=== PATIENT | female | born 1980 | race African-American/Black ===

== ENCOUNTER → 2018-04-27 | Outpatient (CLI) | payer BC ==
[2018-04-27 17:14] LABS: BASO % 0.3 % (0.0-1.0); HEMATOCRIT 34.7 % (36.0-47.0); HEMOGLOBIN 11.3 g/dl (12.0-15.5); LYMPH # 1.5 10^3/uL (1.5-4.5); LYMPH % 45.4 % (24.0-44.0); MEAN CORPUSCULAR HEMOGLOBIN 28.4 pg (27.0-33.0); MEAN CORPUSCULAR HGB CONC 32.6 g/dl (32.0-36.5); MEAN CORPUSCULAR VOLUME 87.2 fl (80.0-96.0); MONO # 0.4 10^3/uL (0.0-0.8); MONO % 13.5 % (0.0-5.0); NEUTROPHILS # 1.3 10^3/uL (1.8-7.7); NEUTROPHILS % 40.5 % (36.0-66.0); PLATELET COUNT, AUTOMATED 291 10^3/uL (150-450); RED BLOOD COUNT 3.98 10^6/uL (4.00-5.40); WHITE BLOOD COUNT 3.3 10^3/uL (4.0-10.0)
[2018-04-27 17:24] LABS: BLOOD UREA NITROGEN 13 MG/DL (7-18); CALCIUM LEVEL 8.1 MG/DL (8.5-10.1); CARBON DIOXIDE LEVEL 27 MEQ/L (21-32); CHLORIDE LEVEL 109 MEQ/L (98-107); CREATININE FOR GFR 0.87 MG/DL (0.55-1.30); GLOMERULAR FILTRATION RATE > 60.0 (>60); GLUCOSE, FASTING 114 MG/DL (70-100); POTASSIUM SERUM 4.2 MEQ/L (3.5-5.1); SODIUM LEVEL 141 MEQ/L (136-145)
== END ==
LOC: M LAB 15:42
PROVIDERS: ATTEND Physician Assistant
DX: R21 Rash and other nonspecific skin eruption (principal)

== ENCOUNTER → 2023-10-19 | Outpatient (CLI) | payer BC ==
[2023-10-19 14:25] LABS: BASO % 0.2 % (0.0-1.0); EOS % 0.6 % (0.0-3.0); HEMATOCRIT 40.2 % (36.0-47.0); HEMOGLOBIN 13.4 g/dl (12.0-15.5); LYMPH % 30.1 % (24.0-44.0); MEAN CORPUSCULAR HEMOGLOBIN 30.5 pg (27.0-33.0); MEAN CORPUSCULAR HGB CONC 33.3 g/dl (32.0-36.5); MEAN CORPUSCULAR VOLUME 91.4 fl (80.0-96.0); MONO # 0.7 10^3/uL (0.0-0.8); MONO % 10.5 % (2.0-8.0); NEUTROPHILS # 3.8 10^3/uL (1.5-8.5); NEUTROPHILS % 58.3 % (36.0-66.0); PLATELET COUNT, AUTOMATED 269 10^3/uL (150-450); WHITE BLOOD COUNT 6.5 10^3/uL (4.0-10.0)
[2023-10-19 15:00] LABS: C REACTIVE PROTEIN QUANTITATIV < 0.40 MG/DL (<1.0)
[2023-10-19 15:02] LABS: ALKALINE PHOSPHATASE 62 U/L (46-116); ALT/SGPT 23 U/L (7.0-40); AST/SGOT 13 U/L (<34); BILIRUBIN,TOTAL 0.6 MG/DL (0.3-1.2); BLOOD UREA NITROGEN 16 MG/DL (9-23); CALCIUM LEVEL 9.8 MG/DL (8.5-10.1); CARBON DIOXIDE LEVEL 24 MMOL/L (20-31); CHLORIDE LEVEL 108 MMOL/L (98-107); GLOMERULAR FILTRATION RATE > 60.0 (>58); GLUCOSE, FASTING 79 MG/DL (60-100); SODIUM LEVEL 137 MMOL/L (136-145); TOTAL PROTEIN 7.4 G/DL (5.7-8.2)
[2023-10-19 15:07] LABS: FREE T4 1.26 NG/DL (0.89-1.76)
== END ==
LOC: M WUC 10:45
PROVIDERS: ATTEND Physician Assistant
DX: L04.0 Acute lymphadenitis of face, head and neck (principal)

== ENCOUNTER → 2024-03-15 | Outpatient (CLI) | payer BC | LOC: M WHC 07:03 | PROVIDERS: ATTEND Nurse Practitioner Family | DX: Z12.31 Encounter for screening mammogram for malignant neoplasm of breast (principal) ==

== ENCOUNTER → 2024-03-15 | Outpatient (CLI) | payer BC ==
[2024-03-15 11:38] LABS: BASO % 0.2 % (0.0-1.0); EOS % 0.7 % (0.0-3.0); HEMATOCRIT 42.2 % (36.0-47.0); HEMOGLOBIN 13.7 g/dl (12.0-15.5); LYMPH # 1.8 10^3/uL (1.5-5.0); LYMPH % 31.3 % (24.0-44.0); MEAN CORPUSCULAR HGB CONC 32.5 g/dl (32.0-36.5); MEAN CORPUSCULAR VOLUME 92.3 fl (80.0-96.0); MONO # 0.6 10^3/uL (0.0-0.8); MONO % 10.1 % (2.0-8.0); NEUTROPHILS # 3.3 10^3/uL (1.5-8.5); NEUTROPHILS % 57.5 % (36.0-66.0); PLATELET COUNT, AUTOMATED 289 10^3/uL (150-450); RED BLOOD COUNT 4.57 10^6/uL (4.00-5.40); WHITE BLOOD COUNT 5.7 10^3/uL (4.0-10.0)
[2024-03-15 12:07] LABS: ALKALINE PHOSPHATASE 52 U/L (35-104); ALT/SGPT 19 U/L (7.0-40); AST/SGOT 14 U/L (<34); BILIRUBIN,TOTAL 1.1 MG/DL (0.3-1.2); BLOOD UREA NITROGEN 11 MG/DL (9-23); CALCIUM LEVEL 8.8 MG/DL (8.5-10.1); CARBON DIOXIDE LEVEL 24 MMOL/L (20-31); CHLORIDE LEVEL 107 MMOL/L (98-107); CHOLESTEROL LEVEL 200 MG/DL (<200); CREATININE FOR GFR 0.78 MG/DL (0.55-1.30); GLOMERULAR FILTRATION RATE > 60.0 (>58); GLUCOSE, FASTING 92 MG/DL (60-100); HDL CHOLESTEROL 71.3 MG/DL (>40); LDL CHOLESTEROL 115.9 MG/DL (<100); NON-HDL-C 128.7 MG/DL; SODIUM LEVEL 139 MMOL/L (136-145); TOTAL PROTEIN 7.3 G/DL (5.7-8.2); TRIGLYCERIDES LEVEL 64 MG/DL (<150)
[2024-03-15 12:08] LABS: THYROID STIMULATING HORMONE 0.614 uIU/ML (0.55-4.78)
[2024-03-15 12:09] LABS: FREE T4 1.26 NG/DL (0.89-1.76)
== END ==
LOC: M PLALAB 07:31
PROVIDERS: ATTEND Nurse Practitioner Family
DX: E55.9 Vitamin D deficiency, unspecified (principal); R53.83 Other fatigue; Z13.220 Encounter for screening for lipoid disorders

== ENCOUNTER → 2024-04-08 | Outpatient (CLI) | payer BC | LOC: M WHC 11:24 | PROVIDERS: ATTEND Nurse Practitioner Family | DX: Z12.31 Encounter for screening mammogram for malignant neoplasm of breast (principal); D17.39 Benign lipomatous neoplasm of skin and subcutaneous tissue of other sites | CPT/HCPCS: 76642; 77066; G0279 ==

== ENCOUNTER → 2024-06-14 | Outpatient (REF) | payer BC ==
[2024-06-18 14:32] LABS: HPV APTIMA Not Detected (Not Detected)
== END ==
LOC: M SFHCPLAZ 17:47
PROVIDERS: ATTEND Nurse Practitioner Family
DX: Z12.4 Encounter for screening for malignant neoplasm of cervix (principal); B37.31 Acute candidiasis of vulva and vagina
CPT/HCPCS: 87624; G0123

== ENCOUNTER 2024-06-21 06:41 | Emergency (ER) | payer BC ==
[~2024-06-21] VITALS: Ht 162.6 cm; Wt 63.6 kg
[2024-06-21 08:50] LABS: BASO % 0.2 % (0.0-1.0); EOS % 0.4 % (0.0-3.0); HEMATOCRIT 39.1 % (36.0-47.0); HEMOGLOBIN 13.4 g/dl (12.0-15.5); LYMPH # 1.6 10^3/uL (1.5-5.0); LYMPH % 30.9 % (24.0-44.0); MEAN CORPUSCULAR HEMOGLOBIN 30.7 pg (27.0-33.0); MEAN CORPUSCULAR HGB CONC 34.3 g/dl (32.0-36.5); MEAN CORPUSCULAR VOLUME 89.7 fl (80.0-96.0); MONO # 0.5 10^3/uL (0.0-0.8); MONO % 10.4 % (2.0-8.0); NEUTROPHILS % 57.9 % (36.0-66.0); PLATELET COUNT, AUTOMATED 274 10^3/uL (150-450); RED BLOOD COUNT 4.36 10^6/uL (4.00-5.40); WHITE BLOOD COUNT 5.1 10^3/uL (4.0-10.0)
[2024-06-21] MEDS ORDERED: ISOVUE-370 76% 100ML VIAL As Ordered ONE (08:50)
[2024-06-21] MEDS ORDERED: CLIN150C17 PO (09:49)
[2024-06-21 10:09] VITALS: BP 118/81; TEMP 98; O2SAT 100
== END 2024-06-21 10:10 | disposition home or self-care (01) ==
LOC: M ED 06:41
DX: K11.5 Sialolithiasis (principal); F17.200 Nicotine dependence, unspecified, uncomplicated; Z88.1 Allergy status to other antibiotic agents; Z88.2 Allergy status to sulfonamides; Z79.2 Long term (current) use of antibiotics
CPT/HCPCS: 36415; 70491; 80047; 85025; 99284; Q9967

== ENCOUNTER 2024-09-19 09:14 | Day surgery (SDC) | payer BC ==
[~2024-09-19] VITALS: Ht 162.6 cm; Wt 63.8 kg
[~2024-09-19 09:14] MED LIST: ACET32TAB PO; CLIN150C17 PO; IBUP200C25 PO
[2024-09-19] MEDS: TRIAMCINOLONE ACETONIDE SUSP 40MG/ML 1ML VIAL As Ordered ONE (09:46)
[2024-09-19] MEDS ORDERED: SUGAMMADEX SODIUM 500 MG/5 ML VIAL As Ordered ONE (10:46)
[2024-09-19] MEDS ORDERED: ONDANSETRON 4MG 2ML VIAL As Ordered ONE (10:46)
[2024-09-19] MEDS ORDERED: ROCURONIUM BROMIDE 50MG/5ML VIAL As Ordered ONE (10:46)
[2024-09-19] MEDS ORDERED: dexAMETHasone 4 MG/ML 1 ML VIAL As Ordered ONE (10:46)
[2024-09-19] MEDS ORDERED: LIDOCAINE 2% 100 MG/5 ML SDV (FOR ANES.) As Ordered ONE (10:46)
[2024-09-19] MEDS ORDERED: MIDAZOLAM INJ 2 MG/2 ML VIAL As Ordered ONE (11:07)
[2024-09-19] MEDS: OXYMETAZOLINE 0.05% NASAL SPRAY As Ordered ONE (11:52)
[2024-09-19] MEDS ORDERED: ACETAMINOPHEN 1000MG/100ML IV BAG As Ordered ONE (12:03)
[2024-09-19] MEDS: LIDOCAINE W/EPINEPHrine 1% 20 ML VIAL As Ordered ONE (12:31)
[2024-09-19] MEDS ORDERED: HYDROMORPHONE HCL 0.5 MG/0.5 ML SYRINGE IV PRN (12:55)
[2024-09-19] MEDS ORDERED: LR 1,000 ML IV SCH ×2 (12:55→14:50)
[2024-09-19] MEDS: ONDANSETRON 4MG 2ML VIAL IV PRN (13:15)
[2024-09-19 14:37] VITALS: BP 109/71; TEMP 97.2; O2SAT 100
== END 2024-09-19 14:48 | disposition home or self-care (01) ==
LOC: M SDC 09:14
PROVIDERS: ATTEND Otolaryngology
DX: K11.5 Sialolithiasis (principal); Z88.1 Allergy status to other antibiotic agents; Z88.2 Allergy status to sulfonamides; F17.210 Nicotine dependence, cigarettes, uncomplicated
CPT/HCPCS: 42330; 81025; 82365; A4649; J0131; J1100; J2250; J2405; J3010